=== PATIENT | male | born 1950 | race Caucasian/White ===

== ENCOUNTER → 2021-04-08 | Outpatient (CLI) | payer OTHER ==
[~2021-04-08] MED LIST: VIBRAMYCIN100 MG PO
== END ==
LOC: WOUNDCARE 01:28
PROVIDERS: ATTEND Nurse Practitioner Family
DX: L97.821 Non-pressure chronic ulcer of other part of left lower leg limited to breakdown of skin (principal); I87.8 Other specified disorders of veins; I89.0 Lymphedema, not elsewhere classified; I10 Essential (primary) hypertension; I48.0 Paroxysmal atrial fibrillation; Z99.3 Dependence on wheelchair; K21.9 Gastro-esophageal reflux disease without esophagitis; M19.90 Unspecified osteoarthritis, unspecified site; Z98.890 Other specified postprocedural states; Z79.899 Other long term (current) drug therapy

== ENCOUNTER 2021-04-11 11:17 | Emergency (ER) | payer OTHER ==
[2021-04-11 11:57] LABS: BASO % 0.4 % (0.0-1.0); EOS # 0.1 10*3/uL (0.0-0.4); EOS % 1.2 % (1.0-4.0); HEMATOCRIT 33.4 % (42.0-52.0); LYMPH # 1.8 10*3/uL (1.3-4.4); LYMPH % 19.1 % (27.0-41.0); MEAN CELL VOLUME 97.7 fl (80.0-94.0); MEAN CORPUSCULAR HGB 30.4 pg (27.0-31.0); MEAN CORPUSCULAR HGB CONC 31.1 g/dl (33.0-37.0); MEAN PLATELET VOLUME 8.5 fl (9.6-12.3); MONO % 10.4 % (3.0-9.0); NEUT # 6.6 10*3/uL (2.3-7.9); NEUT % 68.5 % (47.0-73.0); PLATELET COUNT AUTOMATED 718 10*3/uL (130-400); RED BLOOD COUNT 3.42 10*6/uL (4.50-5.90); RED CELL DISTRI WIDTH 15.3 % (0-14.5); WHITE BLOOD COUNT 9.6 10*3/uL (4.8-10.8)
[2021-04-11 12:13] LABS: ALBUMIN 1.7 gm/dl (3.1-4.5); ALKALINE PHOSPHATASE 90 U/L (45-117); BUN 26 mg/dl (7-24); CHLORIDE 107 mmol/L (98-107); SGOT/AST 15 IU/L (3-35); SGPT/ALT 12 U/L (12-78); SODIUM 138 mmol/L (136-145); TOTAL PROTEIN 6.9 gm/dL (6.4-8.2)
[2021-04-11 12:15] LABS: INTERNATIONAL NORM RATIO 1.7 (2.0-3.5)
[2021-04-11 12:17] LABS: ACT PARTIAL THROMBO TIME 65.5 SECONDS (20.0-32.1)
[2021-04-11 12:53] LABS: BILIRUBIN Negative (Negative); BLOOD Negative (Negative); CLARITY Clear (Clear); COLOR Yellow (Yellow); GLUCOSE Negative (Negative); KETONE Negative (Negative); LEUKO ESTERASE Negative (Negative); NITRITE Negative (Negative); UROBILINOGEN 0.2 E.U./dl (0.0-1.0)
[2021-04-11 13:01] LABS: BACTERIA 1+; EPITHELIAL CELLS 0-2; MUCOUS 1+
[2021-04-11] MEDS ORDERED: VIBRAMYCIN100 MG PO (14:07)
== END 2021-04-11 14:44 ==
LOC: ED 11:17
PROVIDERS: Emergency Medicine
DX: L03.116 Cellulitis of left lower limb (principal); E66.01 Morbid (severe) obesity due to excess calories; I48.91 Unspecified atrial fibrillation; Z86.718 Personal history of other venous thrombosis and embolism

== ENCOUNTER → 2021-04-15 | Outpatient (CLI) | payer OTHER ==
[~2021-04-15] MED LIST changes: +ASPIRIN ADULT L81 M1 PO; +CARDIZEM120 MG PO; +CLINDAMYCIN HC300 MG PO; +CLOPIDOGREL75 MG PO; +COREG6.25 MG PO; +Duragesic 50 M50 MCG TD; +ELIQUIS5 M1 PO; +FEROSUL325 MG PO; +HYDROCODONE-AC1 EAC1 PO; +IBU800 MG PO; +IBUPROFEN600 MG PO; +LASIX40 MG PO; +LEVOTHYROXINE50 MCG PO; +NEURONTIN100 MG PO; +OMNICEF300 MG PO; +POTASSIUM CHLO20 ME3 PO; +PROTONIX40 MG PO; +XARE20MG PO
== END ==
LOC: WOUNDCARE 01:29
PROVIDERS: ATTEND Nurse Practitioner Family
DX: L97.821 Non-pressure chronic ulcer of other part of left lower leg limited to breakdown of skin (principal); S81.811A Laceration without foreign body, right lower leg, initial encounter; I87.8 Other specified disorders of veins; I89.0 Lymphedema, not elsewhere classified; I10 Essential (primary) hypertension; I48.0 Paroxysmal atrial fibrillation; K21.9 Gastro-esophageal reflux disease without esophagitis; Z99.3 Dependence on wheelchair; M19.90 Unspecified osteoarthritis, unspecified site; Z98.890 Other specified postprocedural states; Z79.899 Other long term (current) drug therapy; W22.8XXA Striking against or struck by other objects, initial encounter; Y93.89 Activity, other specified; Y92.89 Other specified places as the place of occurrence of the external cause; Y99.8 Other external cause status

== ENCOUNTER 2021-05-04 11:24 | Emergency (ER) | payer OTHER ==
[~2021-05-04] VITALS: Ht 167.6 cm; Wt 132.4 kg
[2021-05-04] MEDS ORDERED: VITAMIN C500 M1 PO (12:18)
[2021-05-04] MEDS ORDERED: B-12500 MC1 PO (12:19)
[2021-05-04] MEDS ORDERED: VITAMIN D350 MC2 PO (12:20)
[2021-05-04 12:23] LABS: BASO # 0.1 10*3/uL (0.0-0.1); BASO % 0.5 % (0.0-1.0); EOS # 0.1 10*3/uL (0.0-0.4); EOS % 0.8 % (1.0-4.0); HEMATOCRIT 37.5 % (42.0-52.0); LYMPH # 1.6 10*3/uL (1.3-4.4); MEAN CELL VOLUME 102.7 fl (80.0-94.0); MEAN CORPUSCULAR HGB 30.4 pg (27.0-31.0); MEAN CORPUSCULAR HGB CONC 29.6 g/dl (33.0-37.0); MEAN PLATELET VOLUME 8.4 fl (9.6-12.3); MONO # 0.6 10*3/uL (0.1-1.0); MONO % 6.1 % (3.0-9.0); NEUT # 7.7 10*3/uL (2.3-7.9); NEUT % 76.3 % (47.0-73.0); PLATELET COUNT AUTOMATED 719 10*3/uL (130-400); RED BLOOD COUNT 3.65 10*6/uL (4.50-5.90); RED CELL DISTRI WIDTH 21.9 % (0-14.5); WHITE BLOOD COUNT 10.1 10*3/uL (4.8-10.8)
[2021-05-04 12:33] LABS: INTERNATIONAL NORM RATIO 1.2 (2.0-3.5)
[2021-05-04 13:25] LABS: ALKALINE PHOSPHATASE 86 U/L (45-117); BUN 12 mg/dl (7-24); CHLORIDE 100 mmol/L (98-107); CREATININE 1.07 mg/dL (0.70-1.30); POTASSIUM 3.7 mmol/L (3.5-5.1); SGOT/AST 33 IU/L (3-35); SGPT/ALT 16 U/L (12-78); SODIUM 136 mmol/L (136-145); TOTAL PROTEIN 7.3 gm/dL (6.4-8.2)
[2021-05-04] MEDS ORDERED: LEVOFLOXACIN750 M2 PO (15:32)
== END 2021-05-04 18:48 ==
LOC: ED 11:24
PROVIDERS: Physician Assistant
DX: J18.9 Pneumonia, unspecified organism (principal); Z79.899 Other long term (current) drug therapy

== ENCOUNTER 2021-05-27 20:19 | Emergency (ER) | payer OTHER ==
[~2021-05-27] VITALS: Ht 175.2 cm; Wt 192.8 kg
[~2021-05-27 20:19] MED LIST changes: +B-12500 MC1 PO; +LEVOFLOXACIN750 M2 PO; +VITAMIN C500 M1 PO; +VITAMIN D350 MC2 PO
== END 2021-05-27 21:09 | disposition home or self-care (01) ==
LOC: ED 20:19
DX: L89.223 Pressure ulcer of left hip, stage 3 (principal); Z79.899 Other long term (current) drug therapy

== ENCOUNTER → 2021-06-22 | Outpatient (CLI) | payer OTHER | LOC: WOUNDCARE 00:51 | PROVIDERS: ATTEND Surgery | DX: L89.223 Pressure ulcer of left hip, stage 3 (principal); L72.3 Sebaceous cyst; I10 Essential (primary) hypertension; I89.0 Lymphedema, not elsewhere classified; I48.0 Paroxysmal atrial fibrillation; K21.9 Gastro-esophageal reflux disease without esophagitis; M19.90 Unspecified osteoarthritis, unspecified site; E55.9 Vitamin D deficiency, unspecified; Z99.3 Dependence on wheelchair; Z79.899 Other long term (current) drug therapy; Z98.890 Other specified postprocedural states; W22.8XXD Striking against or struck by other objects, subsequent encounter ==

== ENCOUNTER → 2022-01-19 | Outpatient (CLI) | payer OTHER | END | disposition home or self-care (01) | LOC: WOUNDCARE 01:07 | PROVIDERS: ATTEND Nurse Practitioner Family | DX: L97.822 Non-pressure chronic ulcer of other part of left lower leg with fat layer exposed (principal); L97.812 Non-pressure chronic ulcer of other part of right lower leg with fat layer exposed; L89.893 Pressure ulcer of other site, stage 3; L02.416 Cutaneous abscess of left lower limb; I48.0 Paroxysmal atrial fibrillation; R26.89 Other abnormalities of gait and mobility; R53.1 Weakness; I10 Essential (primary) hypertension; I73.9 Peripheral vascular disease, unspecified; K21.9 Gastro-esophageal reflux disease without esophagitis; M19.90 Unspecified osteoarthritis, unspecified site; Z99.3 Dependence on wheelchair ==

== ENCOUNTER → 2022-02-02 | Outpatient (CLI) | payer OTHER | END | disposition home or self-care (01) | LOC: WOUNDCARE 00:29 | PROVIDERS: ATTEND Nurse Practitioner Family | DX: L89.893 Pressure ulcer of other site, stage 3 (principal); L02.416 Cutaneous abscess of left lower limb; L97.822 Non-pressure chronic ulcer of other part of left lower leg with fat layer exposed; L97.811 Non-pressure chronic ulcer of other part of right lower leg limited to breakdown of skin; I48.0 Paroxysmal atrial fibrillation; R26.89 Other abnormalities of gait and mobility; K21.9 Gastro-esophageal reflux disease without esophagitis; I10 Essential (primary) hypertension; I73.9 Peripheral vascular disease, unspecified; M19.90 Unspecified osteoarthritis, unspecified site; Z99.3 Dependence on wheelchair ==

== ENCOUNTER → 2022-03-01 | Outpatient (CLI) | payer OTHER | END | disposition home or self-care (01) | LOC: WOUNDCARE 00:47 | PROVIDERS: ATTEND Nurse Practitioner Family | DX: L89.893 Pressure ulcer of other site, stage 3 (principal); L02.416 Cutaneous abscess of left lower limb; L97.822 Non-pressure chronic ulcer of other part of left lower leg with fat layer exposed; L97.811 Non-pressure chronic ulcer of other part of right lower leg limited to breakdown of skin; I48.0 Paroxysmal atrial fibrillation; R26.89 Other abnormalities of gait and mobility; R53.1 Weakness; I10 Essential (primary) hypertension; I73.9 Peripheral vascular disease, unspecified; K21.9 Gastro-esophageal reflux disease without esophagitis; M19.90 Unspecified osteoarthritis, unspecified site; Z99.3 Dependence on wheelchair ==

== ENCOUNTER → 2022-03-15 | Outpatient (CLI) | payer OTHER | END | disposition home or self-care (01) | LOC: WOUNDCARE 03:00 | PROVIDERS: ATTEND Nurse Practitioner Family | DX: L89.893 Pressure ulcer of other site, stage 3 (principal); L02.416 Cutaneous abscess of left lower limb; L97.822 Non-pressure chronic ulcer of other part of left lower leg with fat layer exposed; L97.811 Non-pressure chronic ulcer of other part of right lower leg limited to breakdown of skin; I48.0 Paroxysmal atrial fibrillation; R26.89 Other abnormalities of gait and mobility; I10 Essential (primary) hypertension; I73.9 Peripheral vascular disease, unspecified; K21.9 Gastro-esophageal reflux disease without esophagitis; M19.90 Unspecified osteoarthritis, unspecified site; Z99.3 Dependence on wheelchair ==

== ENCOUNTER → 2022-03-18 | Outpatient (CLI) | payer OTHER | END | disposition home or self-care (01) | LOC: ORTHO 00:41 | PROVIDERS: ATTEND Orthopaedic Surgery | DX: M25.552 Pain in left hip (principal) ==

== ENCOUNTER → 2022-03-31 | Outpatient (CLI) | payer OTHER | END | disposition home or self-care (01) | LOC: WOUNDCARE 00:38 | PROVIDERS: ATTEND Nurse Practitioner Family | DX: L89.893 Pressure ulcer of other site, stage 3 (principal); L97.822 Non-pressure chronic ulcer of other part of left lower leg with fat layer exposed; L97.112 Non-pressure chronic ulcer of right thigh with fat layer exposed; L02.416 Cutaneous abscess of left lower limb; L03.116 Cellulitis of left lower limb; I48.0 Paroxysmal atrial fibrillation; R26.89 Other abnormalities of gait and mobility; R53.1 Weakness; I10 Essential (primary) hypertension; I73.9 Peripheral vascular disease, unspecified; K21.9 Gastro-esophageal reflux disease without esophagitis; M19.90 Unspecified osteoarthritis, unspecified site; Z99.3 Dependence on wheelchair ==

== ENCOUNTER → 2022-04-14 | Outpatient (CLI) | payer MEDICARE | LOC: WOUNDCARE 01:14 | PROVIDERS: ATTEND Nurse Practitioner Family | DX: Z53.21 Procedure and treatment not carried out due to patient leaving prior to being seen by health care provider (principal) ==

== ENCOUNTER 2022-06-17 21:42 | Inpatient (IN) | payer MEDICARE ==
[~2022-06-17] VITALS: Ht 172.7 cm; Wt 119.0 kg
[~2022-06-17 21:42] MED LIST changes: +AMMONIUM LACTA385 GM T; +BUSPIRONE10 MG PO; +CEFTRIAXONE2 G1 IV; +CENTRUM SILVER1 EACH PO; +COLACE100 MG PO; +FLORASTOR250 MG PO; +MILK OF MA400 MG/5 M PO; +MIRALAX17 GM PO; +NEURONTIN600 MG PO; +REMERON15 M2 PO; +SEPTDS PO; +TYLENOL EXTRA500 MG PO; +UNASYN 3 GM VIAL3 GM IV
[2022-06-17] MEDS ORDERED: ELIQUIS5 M1 PO (21:47)
[2022-06-17] MEDS ORDERED: ALBUTEROL2.5 MG/0.5 INH (21:49)
[2022-06-17] MEDS ORDERED: IRON325 M1 PO (21:50)
[2022-06-17] MEDS ORDERED: METHYLPRED-DP4 MG PO (21:53)
[2022-06-17 21:56] VITALS: BP 128/79
[2022-06-17 23:45] LABS: HEMATOCRIT 37.2 % (42.0-52.0); MEAN PLATELET VOLUME 8.9 fl (9.6-12.3); PLATELET COUNT AUTOMATED 583 10*3/uL (130-400); RED BLOOD COUNT 3.35 10*6/uL (4.50-5.90); RED CELL DISTRI WIDTH 18.6 % (0-14.5)
[2022-06-17 23:47] LABS: MANUAL DIFF REFLEX YES
[2022-06-18] VITALS (7 sets, daily range): BP systolic 106–152; BP diastolic 56–90
[2022-06-18 00:03] LABS: ALKALINE PHOSPHATASE 573 U/L (46-116); BUN 18 mg/dl (9-23); CHLORIDE 103 mmol/L (98-107); POTASSIUM 3.9 mmol/L (3.4-5.1); SGPT/ALT 141 U/L (10-49); TOTAL PROTEIN 6.6 gm/dL (6.0-8.0)
[2022-06-18 00:09] LABS: BASOPHILS 1 % (0-1); PLATELET SUFFICIENCY HIGH (NORMAL); POLYCHROMASIA SLIGHT; SPHEROCYTES FEW; STOMATOCYTE FEW; TOTAL CELLS COUNTED 100 #CELLS; TOXIC GRANULATION SLIGHT
[2022-06-18 03:36] LABS: BILIRUBIN 1+ (Negative); BLOOD Negative (Negative); CLARITY Cloudy (Clear); COLOR Dark Yellow (Yellow); GLUCOSE Negative (Negative); KETONE Trace (Negative); LEUKO ESTERASE Negative (Negative); NITRITE Negative (Negative); SPECIFIC GRAVITY >= 1.030 (1.001-1.030); UROBILINOGEN 0.2 E.U./dl (0.0-1.0)
[2022-06-18 03:54] LABS: BACTERIA 1+; COARSE GRANULAR CAST 0-2
[2022-06-19] VITALS: BP 108/80
[2022-06-19 08:00] VITALS: BP 120/79
== END 2022-06-19 13:57 | disposition hospice, inpatient (51) | DRG 380 ==
LOC: ED 21:42 → EDHOLD 06-18 06:43 → 5E 06-18 12:50
PROVIDERS: Emergency Medicine; ADMIT Internal Medicine; ATTEND Internal Medicine
DX: K31.5 Obstruction of duodenum (principal); E43 Unspecified severe protein-calorie malnutrition; J96.01 Acute respiratory failure with hypoxia; G93.41 Metabolic encephalopathy; J90 Pleural effusion, not elsewhere classified; I48.21 Permanent atrial fibrillation; Z66 Do not resuscitate; I50.9 Heart failure, unspecified; N28.89 Other specified disorders of kidney and ureter; K57.30 Diverticulosis of large intestine without perforation or abscess without bleeding; F02.80 Dementia in other diseases classified elsewhere, unspecified severity, without behavioral disturbance, psychotic disturbance, mood disturbance, and anxiety; E03.9 Hypothyroidism, unspecified; Z51.5 Encounter for palliative care; Z79.1 Long term (current) use of non-steroidal anti-inflammatories (NSAID); Z79.899 Other long term (current) drug therapy; Z86.718 Personal history of other venous thrombosis and embolism; Z68.39 Body mass index [BMI] 39.0-39.9, adult; G30.1 Alzheimer's disease with late onset

== ENCOUNTER 2022-06-19 13:57 | Inpatient (IN) | payer OTHER ==
[~2022-06-19] VITALS: Ht 177.8 cm; Wt 119.0 kg
[2022-06-19 12:00] VITALS: BP 100/59
[~2022-06-19 13:57] MED LIST changes: +ALBUTEROL2.5 MG/0.5 INH; +IRON325 M1 PO; +METHYLPRED-DP4 MG PO
[2022-06-19 14:30] VITALS: BP 146/67
[2022-06-19 16:00] VITALS: BP 98/52
[2022-06-20 08:00] VITALS: BP 102/76
== END 2022-06-20 12:14 | DRG 193 ==
LOC: 5E 13:57
PROVIDERS: ADMIT Internal Medicine; ATTEND Internal Medicine
DX: J18.9 Pneumonia, unspecified organism (principal); E43 Unspecified severe protein-calorie malnutrition; G93.41 Metabolic encephalopathy; L89.223 Pressure ulcer of left hip, stage 3; J96.20 Acute and chronic respiratory failure, unspecified whether with hypoxia or hypercapnia; L03.116 Cellulitis of left lower limb; N17.9 Acute kidney failure, unspecified; Z66 Do not resuscitate; Z51.5 Encounter for palliative care; I48.0 Paroxysmal atrial fibrillation; I46.9 Cardiac arrest, cause unspecified; I50.9 Heart failure, unspecified; R74.01 Elevation of levels of liver transaminase levels; D47.3 Essential (hemorrhagic) thrombocythemia; B95.2 Enterococcus as the cause of diseases classified elsewhere; R62.7 Adult failure to thrive; Z79.899 Other long term (current) drug therapy; Z68.39 Body mass index [BMI] 39.0-39.9, adult